=== PATIENT | female | born 1955 | race Caucasian/White ===

== ENCOUNTER 2018-01-23 13:00 | Inpatient (IN) | payer BC, SELFPAY ==
[2018-01-23] VITALS (7 sets, daily range): BP systolic 110–137; BP diastolic 74–86; PULSE 62–90; RESP 16–18; TEMP 36.8–37.2; O2SAT 98–100; BMI 33.4
--- NOTE | 2018-01-23 14:01 | MRI_ITS ---
STUDY: MRI BRAIN WITHOUT CONTRAST REASON FOR EXAM: Female, 62 years old. Left facial droop and arm weakness TECHNIQUE: Standardized multiplanar fat and water weighted pulse sequences were obtained. COMPARISON: None. FINDINGS: Mild atrophy and periventricular white matter ischemic changes.. There is an old infarct in the right parietal lobe and left posterior frontal lobe. There is also gliosis within the right frontal parietal region which demonstrates restricted diffusion consistent with acute ischemic changes Normal bilateral basal ganglia. Normal thalami. There is no extra-axial fluid accumulation. Normal flow voids within the major intracranial circulation suggesting patency by spin echo criteria. Normal sella turcica, pituitary gland, infundibular stalk, optic chiasm and hypothalamus. Normal tectal plate and pineal gland. Normal midbrain, raisa and medulla. Normal cerebellum. Normal basal cisterns. Normal bilateral temporal bones. Normal bilateral internal auditory canals. No demonstrated orbital abnormality, within the constraints of a routine brain study. Normal visualized paranasal sinuses. Normal calvarium and skull base. Normal visualized soft tissue structures. Normal visualized upper cervical spine. MRI/Brain without Contrast IMPRESSION: Acute ischemic infarct in the right frontal parietal region Mild atrophy and periventricular white matter ischemic changes. Chronic infarct in the right parietal lobe and left posterior frontal lobe.. N.B. : The above information has been verbally conveyed by Herbie Galvan MD to DO bernard, on 01/23/2018 21:31:30 (ET). Electronically Signed: Herbie Galvan MD at 21:25 EST , Service support ,
--- NOTE | 2018-01-23 14:01 | MRI_ITS ---
STUDY: MRA OF THE HEAD WITHOUT CONTRAST REASON FOR EXAM: Female, 62 years old. CVA TECHNIQUE: 3-D [id number]-pu-bkfeku (TOF) imaging was performed with MIPs. The study was performed unenhanced. COMPARISON: None. FINDINGS: Normal bilateral petrous carotid arteries. Normal right cavernous carotid artery with a normal supraclinoid bifurcation. Normal left cavernous carotid artery with a normal supraclinoid bifurcation. Normal right A1 segments of the anterior cerebral artery. Normal left A1 segments of the anterior cerebral artery. Normal intact anterior communicating artery (ACOM). Normal bilateral A2 segments of the anterior cerebral arteries. Normal right M1 and M2 segments of the middle cerebral arteries, with a normal M1 bifurcation. Normal left M1 and M2 segments of the middle cerebral arteries, with a normal M1 bifurcation. Posterior communicating arteries not visualized consistent with normal variant. Normal bilateral vertebral arteries. Normal basilar artery with a normal basilar bifurcation. The visualized bilateral superior cerebellar (SCA) arteries are normal. Normal bilateral P1, P2 and visualized P3 segments of the posterior cerebral arteries. There is no demonstrated aneurysm of the [place]al[place] of [place]. There is no major vessel occlusion or hemodynamically significant stenosis. There is no demonstrated abnormality of the visualized brain. MRI/MRA Head ONLY without Contrast IMPRESSION: Normal MRA of the head Electronically Signed: Herbie Galvan MD at 21:26 EST , Service support ,
--- NOTE | 2018-01-23 14:01 | MRI_ITS ---
STUDY: MRA NECK WITH AND WITHOUT CONTRAST REASON FOR EXAM: Female, 62 years old. CVA TECHNIQUE: 3-D [id number]-gj-[id number] (TOF) imaging was performed in an 1.5 T MRI scanner. 8 ml of Gadavist was administered for the contrast enhanced images. COMPARISON: None. FINDINGS: RIGHT CAROTID ARTERIES: Normal right common carotid artery (CCA). Normal right common carotid bulb. Normal origin of the right internal carotid (ICA) artery without a hemodynamically significant stenosis. Normal visualized cervical portion of the right internal carotid artery. Normal origin of the right external carotid artery (ECA). LEFT CAROTID ARTERIES: Normal left common carotid artery (CCA). Normal left common carotid bulb. Normal origin of the left internal carotid (ICA) artery without a hemodynamically significant stenosis. Normal visualized cervical portion of the left internal carotid artery. Normal origin of the left external carotid artery (ECA). VERTEBRAL ARTERIES: Normal antegrade flow within the bilateral vertebral artery without a hemodynamically significant stenosis. MRI/MRA Neck WITH and W/O Contrast IMPRESSION: Normal bilateral cervical carotid and vertebral arteries. Electronically Signed: Herbie Galvan MD at 21:27 EST , Service support ,
--- NOTE | 2018-01-23 14:01 | ECHOD_ITS ---
Reason For Study: TIA/CVA Procedure This was a 2D Doppler, Color Flow transthoracic echocardiogram. Exam performed in department. Left Ventricle Normal size and thickness. The estimated ejection fraction is 65 %. Normal diastology for age. No regional wall motion abnormalities noted. Right Ventricle Normal size and thickness. Normal systolic function. Atria Normal left atrium. Normal right atrium. Normal atrial septum. Bubble contrast study negative for right to left interatrial shunt. Mitral Valve The mitral valve is structurally normal. No prolapse or stenosis seen. Trivial mitral valve insufficiency. Tricuspid Valve Normal tricuspid valve. Trivial tricuspid valve insufficiency. Right ventricular systolic pressure estimated to be 27 mmHg. Aortic Valve Trisinus/trileaflet aortic valve. Trivial aortic valve insufficiency. Pulmonic Valve Normal pulmonic valve. Great Vessels Normal aortic root. Normal arch. Normal inferior vena cava. Inferior vena cava collapse with sniff. Pericardium/Pleural No pericardial effusion. Medication Performed a rapid injection of agitated mix of 9 cc saline and 1cc air to assess for atrial septal defect. MMode/2D Measurements & Calculations LVIDd: 4.0 cm IVSd: 1.1 cm Ao root diam: 2.9 cm LVIDs: 2.8 cm LVPWd: 1.00 cm RVDd: 3.4 cm FS: 30.2 % LAV(MOD-bp): 58.5 ml LVAd ap4: 32.0 cm2 SV(MOD-sp4): 56.0 ml LAV(MOD-bp) Indexed: 31.4 ml/m2 EDV(MOD-sp4): 96.9 ml LAV(MOD-sp2): 53.5 ml EDV(sp4-el): 100.1 ml LAV(MOD-sp4): 63.3 ml LVAs ap4: 18.1 cm2 ESV(MOD-sp4): 40.9 ml ESV(sp4-el): 39.9 ml EF(MOD-sp4): 57.8 % EF(sp4-el): 60.2 % SV(sp4-el): 60.2 ml LA A4 area: 20.7 cm2 LA dimension(2D): 2.9 cm RA A4 area: 17.0 cm2 Time Measurements MV dec time: 0.25 sec Doppler Measurements & Calculations MV E max damian: 143.0 cm/sec Lat Peak E' Damian: 11.1 cm/sec Med Peak E' Damian: 7.7 cm/sec MV A max damian: 113.9 cm/sec E/E' lat: 12.9 E/E' med: 18.5 MV E/A: 1.3 MV V2 max: 139.9 cm/sec Ao V2 max: 171.0 cm/sec LV V1 max: 92.2 cm/sec MV max P.8 mmHg Ao max P.7 mmHg LV V1 max P.4 mmHg MV V2 mean: 87.1 cm/sec MV mean P.4 mmHg MV V2 VTI: 47.6 cm PA V2 max: 77.8 cm/sec TR max damian: 235.8 cm/sec MV P1/2t-pr_phl: 107.8 msec TR max P.2 mmHg Interpretation Summary The estimated ejection fraction is 65 %. Normal diastology for age. Bubble contrast study negative for right to left interatrial shunt. Trivial mitral valve insufficiency. Trivial tricuspid valve insufficiency. Right ventricular systolic pressure estimated to be 27 mmHg. Trivial aortic valve insufficiency. There is no comparison study available. Ordering Physician: Scotty Zelaya Referring Physician: PARIS SNYDER Performed By: Conchis Quinones, ANA, RVT
--- NOTE | 2018-01-23 14:30 | PCM.CONS.GEN ---
Problem List (1) Stroke Status: Acute Qualifiers: Precerebral and cerebral artery: middle cerebral artery Laterality of affected vessel: right Reason for Consult Date of Consultation: 01/23/18 Reason for Consultation: Stroke History of Present Illness: The patient is a 62 year old CF with PMH HTN, HLD, DM, H/O stroke per CT images, H/O Breast cancer with right lumpectomy, s/p chemotherapy and radiation in 2014 admitted with stroke. Per patient she developed left facial droop, with left arm numbness and hand weakness sometime after she woke up this morning (01/23/18), also complaints of mild occipital CHAMORRO, denies any dizziness, visual disturbances or speech disturbances, denies any neck pain or low back pain with radicular symptoms, she was initially taken to hospital at [facility] and then transferred to [facility], had NIHSS of about 2 on admission, was not a tpa candidate. Per patient she lives with her husbands, denies any falls, does drive, does not use cane or walker to ambulate, does not need any assistance for her ADLs, she has not been on ASA at baseline. The CT head done at [facility] ED reported to show old large left temporoparietal and right parietal infarct but per patient she was never of the strokes and denies any stroke symptoms in the past. [] Past Medical History Allergies erythromycin base [Erythromycin Base] Allergy (Verified 01/29/14 14:47) Rash Home Medications: Ambulatory Orders Medication Instructions Recorded Ascorbic Acid [Vitamin C] 500 mg PO DAILY@0800 01/29/14 Lisinopril [Zestril] 5 mg PO DAILY 01/29/14 Metformin HCl [Glucophage] 500 mg PO BIDCM 01/29/14 Multivitamins,Therapeutic 1 tablet PO DAILY 01/29/14 [Multivitamin] [place]-3 Fatty Acids [Fish Oil] 500 mg PO QODAY 01/29/14 Pravastatin [Pravachol] 20 mg PO DAILY 01/29/14 Tamoxifen [Nolvadex] 20 mg PO DAILY 01/23/18 Lives: Spouse/ Significant Other Smoking Status: Never smoker Tobacco Use: Non-smoker Alcohol: None Drugs: None Review of Systems Constitutional: Reports: - - complete ROS negative except as documented in HPI Patient Problems: Active and Suspected Problems Stroke (Acute) - Physical Exam General: Alert HEENT: Normocephalic Neck: Supple Lungs: Normal air movement Cardiovascular: Normal S1, Normal S2 Abdomen: Bowel Sounds Present Extremities: No cyanosis Neurological: - - consious, alert, AoAx3, CN -left 7th UMN facial palsy, no facial sensory loss, power 5/5 right UE/LE, 4/5 Left UE with distal hand weakness, 5/5 Left LE, left pronator drift, plantars right flexor, left equivocal, denies any sensory loss at present, no cerebellar signs, Reflexes + B/L B/S/T/K/A, gait deferred, no aphasia/dysarthria, NIHSS 2 at present, mRS 0 at baseline Psych/Mental Status: Normal Affect Vital Signs Temp Pulse Resp BP Pulse Ox 98.9 F 62 18 110/80 98 01/23/18 13:20 01/23/18 13:20 01/23/18 13:20 01/23/18 13:20 01/23/18 13:20 Oxygen Delivery Method Room Air Weight: 85.638 kg Body Mass Index (BMI) 33.4 Assessment/Plan All Active Problems Stroke (Acute) The patient is a 62 year old CF with PMH HTN, HLD, DM, H/O stroke per CT images, H/O Breast cancer with right lumpectomy, s/p chemotherapy and radiation in 2014 admitted with stroke. Per patient she developed left facial droop, with left arm numbness and hand weakness sometime after she woke up this morning (01/23/18), also complaints of mild occipital CHAMORRO, denies any dizziness, visual disturbances or speech disturbances, denies any neck pain or low back pain with radicular symptoms, she was initially taken to hospital at [facility] and then transferred to [facility], had NIHSS of about 2 on admission, was not a tpa candidate. Per patient she lives with her husbands, denies any falls, does drive, does not use cane or walker to ambulate, does not need any assistance for her ADLs, she has not been on ASA at baseline. The CT head done at [facility] ED reported to show old large left temporoparietal and right parietal infarct but per patient she was never of the strokes and denies any stroke symptoms in the past. Impression Likely Right MCA stroke vs right pontine stroke Plan -ASA 81 mg PO once daily and Plavix 75 mg PO Once daily. Dual AP for 3 weeks, then switch to single AP. Bleeding risks discussed in detail -Lipitor 80 mg PO q hs -MRI brain and MRA head/neck-p -TTE-p -LDL/[id number] -Frequent neuro checks -Permissive HTN for initially 24 hrs atleast -30 day event recorder. -Stroke risk factors discussed and stroke education provided -PT/OT -GI/DVT prophylaxis -Fall precautions -Further medical management per hospitalist team -Follow up with Neurology as outpatient in 2-3 weeks after discharge. -Please call with questions if any -Thank you for allowing us to participate in patient's care and management Code Visit Inpatient E&M: [id number] Init Hosp L3
--- NOTE | 2018-01-23 14:35 | CON.PCM_ITS ---
Problem List (1) Stroke Status: Acute Qualifiers: Precerebral and cerebral artery: middle cerebral artery Laterality of affected vessel: right Reason for Consult Date of Consultation: 01/23/18 Reason for Consultation: Stroke History of Present Illness: The patient is a 62 year old CF with PMH HTN, HLD, DM, H/O stroke per CT images, H/O Breast cancer with right lumpectomy, s/p chemotherapy and radiation in 2014 admitted with stroke. Per patient she developed left facial droop, with left arm numbness and hand weakness sometime after she woke up this morning (01/23/18), also complaints of mild occipital CHAMORRO, denies any dizziness, visual disturbances or speech disturbances, denies any neck pain or low back pain with radicular symptoms, she was initially taken to hospital at [place] and then transferred to [facility], had NIHSS of about 2 on admission, was not a tpa candidate. Per patient she lives with her husbands, denies any falls, does drive, does not use cane or walker to ambulate, does not need any assistance for her ADLs, she has not been on ASA at baseline. The CT head done at [place] ED reported to show old large left temporoparietal and right parietal infarct but per patient she was never of the strokes and denies any stroke symptoms in the past. [] Past Medical History Allergies erythromycin base [Erythromycin Base] Allergy (Verified 01/29/14 14:47) Rash Home Medications: Ambulatory Orders Medication Instructions Recorded Ascorbic Acid [Vitamin C] 500 mg PO DAILY@0800 01/29/14 Lisinopril [Zestril] 5 mg PO DAILY 01/29/14 Metformin HCl [Glucophage] 500 mg PO BIDCM 01/29/14 Multivitamins,Therapeutic 1 tablet PO DAILY 01/29/14 [Multivitamin] [place]-3 Fatty Acids [Fish Oil] 500 mg PO QODAY 01/29/14 Pravastatin [Pravachol] 20 mg PO DAILY 01/29/14 Tamoxifen [Nolvadex] 20 mg PO DAILY 01/23/18 Lives: Spouse/ Significant Other Smoking Status: Never smoker Tobacco Use: Non-smoker Alcohol: None Drugs: None Review of Systems Constitutional: Reports: - - complete ROS negative except as documented in HPI Patient Problems: Active and Suspected Problems Stroke (Acute) - Physical Exam General: Alert HEENT: Normocephalic Neck: Supple Lungs: Normal air movement Cardiovascular: Normal S1, Normal S2 Abdomen: Bowel Sounds Present Extremities: No cyanosis Neurological: - - consious, alert, AoAx3, CN -left 7th UMN facial palsy, no facial sensory loss, power 5/5 right UE/LE, 4/5 Left UE with distal hand weakness, 5/5 Left LE, left pronator drift, plantars right flexor, left equivocal, denies any sensory loss at present, no cerebellar signs, Reflexes + B/L B/S/T/K/A, gait deferred, no aphasia/dysarthria, NIHSS 2 at present, mRS 0 at baseline Psych/Mental Status: Normal Affect Vital Signs Temp Pulse Resp BP Pulse Ox 98.9 F 62 18 110/80 98 01/23/18 13:20 01/23/18 13:20 01/23/18 13:20 01/23/18 13:20 01/23/18 13:20 Oxygen Delivery Method Room Air Weight: 85.638 kg Body Mass Index (BMI) 33.4 Assessment/Plan All Active Problems Stroke (Acute) The patient is a 62 year old CF with PMH HTN, HLD, DM, H/O stroke per CT images, H/O Breast cancer with right lumpectomy, s/p chemotherapy and radiation in 2014 admitted with stroke. Per patient she developed left facial droop, with left arm numbness and hand weakness sometime after she woke up this morning (01/23/18), also complaints of mild occipital CHAMORRO, denies any dizziness, visual disturbances or speech disturbances, denies any neck pain or low back pain with radicular symptoms, she was initially taken to hospital at [place] and then transferred to [facility], had NIHSS of about 2 on admission, was not a tpa candidate. Per patient she lives with her husbands, denies any falls, does drive, does not use cane or walker to ambulate, does not need any assistance for her ADLs, she has not been on ASA at baseline. The CT head done at [place] ED reported to show old large left temporoparietal and right parietal infarct but per patient she was never of the strokes and denies any stroke symptoms in the past. Impression Likely Right MCA stroke vs right pontine stroke Plan -ASA 81 mg PO once daily and Plavix 75 mg PO Once daily. Dual AP for 3 weeks, then switch to single AP. Bleeding risks discussed in detail -Lipitor 80 mg PO q hs -MRI brain and MRA head/neck-p -TTE-p -LDL/[id number] -Frequent neuro checks -Permissive HTN for initially 24 hrs atleast -30 day event recorder. -Stroke risk factors discussed and stroke education provided -PT/OT -GI/DVT prophylaxis -Fall precautions -Further medical management per hospitalist team -Follow up with Neurology as outpatient in 2-3 weeks after discharge. -Please call with questions if any -Thank you for allowing us to participate in patient's care and management Code Visit Inpatient E&M: [id number] Init Hosp L3
[2018-01-23 16:22] LABS: Hemoglobin A1c 8.6 % (4.2-6.3)
[2018-01-23] MEDS: Aspirin 81 MG TAB.CHEW PO (17:18)
--- NOTE | 2018-01-23 20:28 | PCM.HP.STD ---
Problem List (1) Acute ischemic stroke Status: Acute History of Present Illness Date of Admission: 01/23/18 Chief Complaint: Acute stroke, left upper extremity weakness and left facial drooping The patient is a 62 year old F who was directly admitted to PCU after being seen at an emergency room in [facility] with complaints of left facial drooping, left arm paresthesias, and left arm weakness which started a little after 6 AM in the morning this morning. Patient had already awakened when the symptoms started. Patient denies any visual disturbances, headache, speech disturbances, or difficulty walking. Workup was performed including a CAT scan of the brain which showed the presence of 2 old strokes, patient's lab work showed an elevated blood sugar. Patient was directly admitted to PCU for further workup of her symptoms-it was felt that she had an acute ischemic stroke. Patient's NIH stroke score at the time of admission to PCU today was 2. Patient stated that she had no previous diagnosis of a confirmed stroke although she had an episode many years ago that presented as problems with her coordination and speech. Patient was not on any aspirin at home, she is being treated by her PCP for type 2 diabetes and hyperlipidemia. She has a past history of left breast cancer that was treated with a lumpectomy and radiation in 2016. Patient states her blood sugar has not been under good control-she states that she thinks her last hemoglobin A1c was 7.9. Past Medical History Allergies erythromycin base [Erythromycin Base] Allergy (Verified 01/29/14 14:47) Rash Home Medications: Ambulatory Orders Medication Instructions Recorded Ascorbic Acid [Vitamin C] 500 mg PO DAILY@0800 01/29/14 Lisinopril [Zestril] 5 mg PO DAILY 01/29/14 Metformin HCl [Glucophage] 500 mg PO BIDCM 01/29/14 Multivitamins,Therapeutic 1 tablet PO DAILY 01/29/14 [Multivitamin] [place]-3 Fatty Acids [Fish Oil] 500 mg PO QODAY 01/29/14 Pravastatin [Pravachol] 20 mg PO DAILY 01/29/14 Tamoxifen [Nolvadex] 20 mg PO DAILY 01/23/18 Surgical History: hysterectomy, - - Back to [place] left breast, left foot surgery Psychiatric History: No pertinent psych hx 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 Denies: Difficulty Hearing, Difficulty Swallowing, Dysphasia, Ear Pain, Eye Pain, Head Aches, Hearing Changes, Nasal bleeding, Nasal Congestion, Post Nasal Drip Cardiovascular: Denies: Chest Pain, Claudication, Chest Pressure, Chest Tightness, Edema, Heaviness, Palpitations Respiratory: Denies: Cough, Hemoptysis, Pleuritic Pain, Shortness of Breath, Shortness of breath at rest, Shortness of breath upon exertion, Sputum production Gastrointestinal: Denies: Abdominal Pain, Constipation, Diarrhea, Hematemesis, Hematochezia, Nausea, Melena, Vomiting Genitourinary: Denies: Dysuria, Frequency, Hematuria, Hesitancy, Urgency Musculoskeletal: Denies: Back Pain, Foot Pain, Hand Pain, Joint Pain, Joint stiffness, Joint swelling, Joint Tenderness, Leg Pain Skin: Denies: Dryness, Jaundice, Pruritis, Rash, Wounds Neurological: Reports: Focal weakness - Left arm weakness starting just after 6 AM this morning, Tingling - Tingling of the left arm starting just after 6 AM this morning. Denies: Blurred vision, Double vision, Change in Speech, Slurred speech, Difficulty swallowing, Numbness Psychiatric: Denies: Anxiety, Depression, Homicidal Ideations, Suicidal Ideations Endocrine: Denies: Change in Body Habitus, Heat/ Cold Intolerance, Polydipsia, Polyuria Hematologic/ Lymphatic: Denies: Adenopathy, Anemia, Easy Bruising, Easy Bleeding, Petechiae, Purpura VTE Information - Inpt Only VTE Present on Admission: No VTE Mechan Device Prophylaxis: None VTE Pharm Prophylaxis ordered?: Yes Patient Problems: Active and Suspected Problems Stroke (Acute) Acute ischemic stroke (Acute) - Physical Exam General: Alert, Oriented x3, Cooperative, No apparent distress, Well developed, Well nourished HEENT: Atraumatic, PERRLA, EOMI, Normocephalic, - - Left-sided mouth drooping is noted Oral: Moist Mucosa Neck: Supple, No JVD, Negative Carotid Bruits, No Nuchal Rigidity, Trachea Midline, Thyroid Normal Size and Texture Lungs: Clear to auscultation, Normal air movement, No rhonchi, No wheeze, No rales Cardiovascular: Regular rate, Regular Rhythm, Normal S1, Normal S2, No murmurs, No Ectopic Activity, PMI Normal, No rub noted, No Gallop Abdomen: Bowel Sounds Present, Soft, Non Tender, Non-Distended, No hernias noted Extremities: No edema, Capillary Refill Less than 3 Seconds Skin: No rashes, No breakdown Musculoskeletal: No Tenderness to Palpation of Joints or Extremities Neurological: Cranial nerves II-XII grossly intact, Neuro grossly intact, Sensory exam intact to light touch and pain, - - Focal weakness is noted in the left arm with decreased telephone interviewer strength and flexion and extension in the left arm, drooping of the left side of the mouth is noted Psych/Mental Status: Normal Affect, Appropriate, Alert and oriented to time, place, person, mood and affect Vital Signs Temp Pulse Resp BP Pulse Ox 98.5 F 81 18 125/86 H 100 01/23/18 17:20 01/23/18 18:57 01/23/18 17:20 01/23/18 17:20 01/23/18 17:20 Oxygen Delivery Method Room Air Weight: 85.638 kg Body Mass Index (BMI) 33.4 Intake and Output for Last 24 Hours 01/21/18 01/22/18 01/23/18 23:59 23:59 23:59 Intake Total 240 / 240 Balance 240 / 240 Laboratory Tests Past 24 Hrs 01/23/18 15:25 Hemoglobin A1c 8.6 H Assessment/Plan All Active Problems Stroke (Acute) Acute ischemic stroke (Acute) #1 acute ischemic stroke-right cerebral area involving right middle cerebral artery-patient was placed on aspirin, she was placed on Lipitor, she will have a PT, OT, and speech eval, she was seen by neurology today in consultation, she will have an echocardiogram performed as well as an MRA of the head and neck and an MRI of the brain. #2 type 2 diabetes-under poor control--patient's blood sugars will be monitored and she will get be given insulin per protocol #3 hyperlipidemia-patient was placed on Lipitor 80 mg nightly #4 past history of left breast cancer-patient will remain on her current outpatient medication # 5 cerebrovascular disease with past history of right and left cerebral infarctions-patient may need a 30-day event monitor at the time of discharge, she might require a [place] during this admission Code Visit Inpatient E&M: [id number] Init Hosp L3
--- NOTE | 2018-01-23 20:34 | HP.PCM_ITS ---
Problem List (1) Acute ischemic stroke Status: Acute History of Present Illness Date of Admission: 01/23/18 Chief Complaint: Acute stroke, left upper extremity weakness and left facial drooping The patient is a 62 year old F who was directly admitted to PCU after being seen at an emergency room in [facility] with complaints of left facial drooping, left arm paresthesias, and left arm weakness which started a little after 6 AM in the morning this morning. Patient had already awakened when the symptoms started. Patient denies any visual disturbances, headache, speech disturbances, or difficulty walking. Workup was performed including a CAT scan of the brain which showed the presence of 2 old strokes, patient's lab work showed an elevated blood sugar. Patient was directly admitted to PCU for further workup of her symptoms-it was felt that she had an acute ischemic stroke. Patient's NIH stroke score at the time of admission to PCU today was 2. Patient stated that she had no previous diagnosis of a confirmed stroke although she had an e pisode many years ago that presented as problems with her coordination and speech. Patient was not on any aspirin at home, she is being treated by her PCP for type 2 diabetes and hyperlipidemia. She has a past history of left breast cancer that was treated with a lumpectomy and radiation in 2016. Patient states her blood sugar has not been under good control-she states that she thinks her last hemoglobin A1c was 7.9. Past Medical History Allergies erythromycin base [Erythromycin Base] Allergy (Verified 01/29/14 14:47) Rash Home Medications: Ambulatory Orders Medication Instructions Recorded Ascorbic Acid [Vitamin C] 500 mg PO DAILY@0800 01/29/14 Lisinopril [Zestril] 5 mg PO DAILY 01/29/14 Metformin HCl [Glucophage] 500 mg PO BIDCM 01/29/14 Multivitamins,Therapeutic 1 tablet PO DAILY 01/29/14 [Multivitamin] [place]-3 Fatty Acids [Fish Oil] 500 mg PO QODAY 01/29/14 Pravastatin [Pravachol] 20 mg PO DAILY 01/29/14 Tamoxifen [Nolvadex] 20 mg PO DAILY 01/23/18 Surgical History: hysterectomy, - - Back to wi left breast, left foot surgery Psychiatric History: No pertinent psych hx APPLIED STATISTICIAN History: No pertinent APPLIED STATISTICIAN history Lives: Spouse/ Significant Other Smoking Status: Never smoker Tobacco Use: Non-smoker Alcohol: None Drugs: None - *Family History Maternal History Items: - - Multiple sclerosis Paternal History Items: Cancer - Colon and prostate CA Review of Systems Constitutional: Denies: Anorexia, Chills, Fever, Night Sweats, Malaise, Weakness, Weight Change, Fatigue Eyes: Denies: Blurred vision, Cataracts, Conjunctivae Inflammation, Double vision, Drainage, Eyelid Inflammation HEENT: Reports: - - Left mouth drooping which started at approximately 6 AM this morning. Denies: Difficulty Hearing, Difficulty Swallowing, Dysphasia, Ear Pain, Eye Pain, Head Aches, Hearing Changes, Nasal bleeding, Nasal Congestion, Post Nasal Drip Cardiovascular: Denies: Chest Pain, Claudication, Chest Pressure, Chest Tightness, Edema, Heaviness, Palpitations Respiratory: Denies: Cough, Hemoptysis, Pleuritic Pain, Shortness of Breath, Shortness of breath at rest, Shortness of breath upon exertion, Sputum production Gastrointestinal: Denies: Abdominal Pain, Constipation, Diarrhea, Hematemesis, Hematochezia, Nausea, Melena, Vomiting Genitourinary: Denies: Dysuria, Frequency, Hematuria, Hesitancy, Urgency Musculoskeletal: Denies: Back Pain, Foot Pain, Hand Pain, Joint Pain, Joint stiffness, Joint swelling, Joint Tenderness, Leg Pain Skin: Denies: Dryness, Jaundice, Pruritis, Rash, Wounds Neurological: Reports: Focal weakness - Left arm weakness starting just after 6 AM this morning, Tingling - Tingling of the left arm starting just after 6 AM this morning. Denies: Blurred vision, Double vision, Change in Speech, Slurred speech, Difficulty swallowing, Numbness Psychiatric: Denies: Anxiety, Depression, Homicidal Ideations, Suicidal Ideations Endocrine: Denies: Change in Body Habitus, Heat/ Cold Intolerance, Polydipsia, Polyuria Hematologic/ Lymphatic: Denies: Adenopathy, Anemia, Easy Bruising, Easy Bleeding, Petechiae, Purpura VTE Information - Inpt Only VTE Present on Admission: No VTE Mechan Device Prophylaxis: None VTE Pharm Prophylaxis ordered?: Yes Patient Problems: Active and Suspected Problems Stroke (Acute) Acute ischemic stroke (Acute) - Physical Exam General: Alert, Oriented x3, Cooperative, No apparent distress, Well developed, Well nourished HEENT: Atraumatic, PERRLA, EOMI, Normocephalic, - - Left-sided mouth drooping is noted Oral: Moist Mucosa Neck: Supple, No JVD, Negative Carotid Bruits, No Nuchal Rigidity, Trachea Midline, Thyroid Normal Size and Texture Lungs: Clear to auscultation, Normal air movement, No rhonchi, No wheeze, No rales Cardiovascular: Regular rate, Regular Rhythm, Normal S1, Normal S2, No murmurs, No Ectopic Activity, PMI Normal, No rub noted, No Gallop Abdomen: Bowel Sounds Present, Soft, Non Tender, Non-Distended, No hernias noted Extremities: No edema, Capillary Refill Less than 3 Seconds Skin: No rashes, No breakdown Musculoskeletal: No Tenderness to Palpation of Joints or Extremities Neurological: Cranial nerves II-XII grossly intact, Neuro grossly intact, Sensory exam intact to light touch and pain, - - Focal weakness is noted in the left arm with decreased curer acid drum strength and flexion and extension in the left arm, drooping of the left side of the mouth is noted Psych/Mental Status: Normal Affect, Appropriate, Alert and oriented to time, place, person, mood and affect Vital Signs Temp Pulse Resp BP Pulse Ox 98.5 F 81 18 125/86 H 100 01/23/18 17:20 01/23/18 18:57 01/23/18 17:20 01/23/18 17:20 01/23/18 17:20 Oxygen Delivery Method Room Air Weight: 85.638 kg Body Mass Index (BMI) 33.4 Intake and Output for Last 24 Hours 01/21/18 01/22/18 01/23/18 23:59 23:59 23:59 Intake Total 240 / 240 Balance 240 / 240 Laboratory Tests Past 24 Hrs 01/23/18 15:25 Hemoglobin A1c 8.6 H Assessment/Plan All Active Problems Stroke (Acute) Acute ischemic stroke (Acute) #1 acute ischemic stroke-right cerebral area involving right middle cerebral artery-patient was placed on aspirin, she was placed on Lipitor, she will have a PT, OT, and speech eval, she was seen by neurology today in consultation, she will have an echocardiogram performed as well as an MRA of the head and neck and an MRI of the brain. #2 type 2 diabetes-under poor control--patient's blood sugars will be monitored and she will get be given insulin per protocol #3 hyperlipidemia-patient was placed on Lipitor 80 mg nightly #4 past history of left breast cancer-patient will remain on her current outpatient medication # 5 cerebrovascular disease with past history of right and left cerebral infarctions-patient may need a 30-day event monitor at the time of discharge, she might require a [place] during this admission Code Visit Inpatient E&M: 37347 Init Hosp L3
[2018-01-23] MEDS: Atorvastatin Calcium 80 MG Tablet PO (21:26)
[2018-01-23 23:11] LABS: Bedside Glucose 161 mg/dL (70-110)
[2018-01-24] VITALS (7 sets, daily range): BP systolic 116–138; BP diastolic 67–75; PULSE 62–103; RESP 16–18; TEMP 36.6–37.2; O2SAT 96–99; BMI 33.4
[2018-01-24] MEDS: Enoxaparin 40 MG/0.4 ML Syringe SC (05:33)
[2018-01-24 06:29] LABS: Cholesterol 172 mg/dL (200); High Density Lipoprotein 42 mg/dL; Triglycerides 214 mg/dL; Very Low Density Lipoprotein 43 mg/dL (5-40)
[2018-01-24 06:50] LABS: Bedside Glucose 180 mg/dL (70-110)
[2018-01-24] MEDS: Aspirin 81 MG TAB.CHEW PO (09:20)
[2018-01-24] MEDS: Tamoxifen 10 MG Tablet 20 MG PO (09:21)
[2018-01-24] MEDS: Lisinopril 5 MG Tablet PO (09:21)
[2018-01-24] MEDS: Multivitamins,Therapeutic Tablet 1 TABLET PO (09:21)
[2018-01-24] MEDS: Ascorbic Acid 500 MG Tablet PO (09:21)
[2018-01-24] MEDS: Clopidogrel Bisulfate 75 MG Tablet PO (09:21)
--- NOTE | 2018-01-24 10:26 | PCM.PN.NEU ---
Patient Problems: Active and Suspected Problems Stroke (Acute) Acute ischemic stroke (Acute) Subjective: No issues overnight - Physical Exam General: Alert HEENT: Normocephalic Neck: Supple Lungs: Normal air movement Cardiovascular: Normal S1, Normal S2 Abdomen: Bowel Sounds Present Extremities: No cyanosis Neurological: - - consious, alert, AoAx3, CN -left 7th UMN facial palsy, no facial sensory loss, power 5/5 right UE/LE, 4/5 Left UE with distal hand weakness, 5/5 Left LE, left pronator drift, plantars right flexor, left equivocal, denies any sensory loss at present, no cerebellar signs, Reflexes + B/L B/S/T/K/A, gait deferred, no aphasia/dysarthria, NIHSS 2 at present, mRS 0 at baseline Psych/Mental Status: Normal Affect Vital Signs Temp Pulse Resp BP Pulse Ox 99.0 F 71 18 138/71 H 99 01/24/18 09:20 01/24/18 09:20 01/24/18 09:20 01/24/18 09:20 01/24/18 09:20 Oxygen Delivery Method Room Air Weight: 85.638 kg Body Mass Index (BMI) 33.4 Intake and Output for Last 24 Hours 01/22/18 01/23/18 01/24/18 23:59 23:59 23:59 Intake Total 240 / 240 120 / 120 Balance 240 / 240 120 / 120 Laboratory Tests Past 24 Hrs 01/23/18 01/24/18 15:25 05:45 Hemoglobin A1c 8.6 H Triglycerides 214 H Cholesterol 172 LDL Cholesterol 87 VLDL Cholesterol 43 H HDL Cholesterol 42 POC Glucose 01/24/18 01/23/18 06:47 21:27 POC Glucose 180 H 161 H Medical Necessity - Tobacco Use Smoking Status: Never smoker Tobacco Use: Non-smoker Assessment/Plan All Active Problems Stroke (Acute) Acute ischemic stroke (Acute) The patient is a 62 year old CF with PMH HTN, HLD, DM, H/O stroke per CT images, H/O Breast cancer with right lumpectomy, s/p chemotherapy and radiation in 2014 admitted with stroke. Per patient she developed left facial droop, with left arm numbness and hand weakness sometime after she woke up this morning (01/23/18), also complaints of mild occipital CHAMORRO, denies any dizziness, visual disturbances or speech disturbances, denies any neck pain or low back pain with radicular symptoms, she was initially taken to hospital at [facility] and then transferred to [facility], had NIHSS of about 2 on admission, was not a tpa candidate. Per patient she lives with her husbands, denies any falls, does drive, does not use cane or walker to ambulate, does not need any assistance for her ADLs, she has not been on ASA at baseline. The CT head done at [facility] ED reported to show old large left temporoparietal and right parietal infarct but per patient she was never of the strokes and denies any stroke symptoms in the past. Impression Acute Right MCA stroke Plan -ASA 81 mg PO once daily and Plavix 75 mg PO Once daily. Dual AP for 3 weeks, then switch to single AP. Bleeding risks discussed in detail -Lipitor 80 mg PO q hs -MRI brain-acute right fronto-parietal small stroke, chronic right parietal and left fronto-parietal stroke and MRA head/neck-no hemodynamically significant stenosis or occlusion -TTE-p -LDL-87 Gfq3x-9.6% -Frequent neuro checks -Goal BP < 130/80 mmHg and goal Hba1c < 7% -30 day event recorder. -Stroke risk factors discussed and stroke education provided -PT/OT -GI/DVT prophylaxis -Fall precautions -Further medical management per hospitalist team -Follow up with Neurology as outpatient in 2-3 weeks after discharge. -Please call with questions if any -Thank you for allowing us to participate in patient's care and management
[2018-01-24 11:21] LABS: Bedside Glucose 239 mg/dL (70-110)
[2018-01-24] MEDS: Insulin Lispro 100 UNIT/ML INSULN.PEN SC (12:16)
--- NOTE | 2018-01-24 13:24 | CASEMGMT ---
DO ALFARO assessment: Face to Face with patient for initial transition planning/care coordination assessment. RN DOMINIC introduced self and role at [facility], pt voices understanding and consents to assessment at this time. Pt is sitting up in bed in no distress at this time. Pt is A/Ox4 at this time and answers all questions appropriately at this time. Pt's is at bedside during assessment. Care providers, pharmacy, and demographics verified at this time. PCP: Deb Specialists: Valery, surg; [facility] onc RN, Heaven Colvin Preferred Pharmacy: [facility] Insurance: [employer] Prescription Benefit: [employer] Living Will/HPOA: Pt states does not currently have LW/HPOA but was provided with advanced care planning info by nursing. Pt provided with bilingual social worker pamphlet at this time. LNOK: Ricco Esqueda, Living Arrangements: Pt states lives with in 2 story home with bedroom on 2nd floor and states no concerns at home at this time. Transportation: Pt states normally drives self and states no transportation concerns at this time. DME/HHC: Pt states has no current DME or need for any at this time. Pt states no hx of HHC or SNF in the past. Speech and OT are recommending outpt therapy for pt at discharge and pt provided with script for same at this time. Script also faxed to [facility] per pt request at this time. Pt states no concerns with going home at time of discharge. 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 Pt states does not smoke or drink ETOH. Pt states no further concerns/need at this time. Advised pt to ask for CM if any further questions/concerns/needs arise, voices understanding. Plan: Home w/ OP therapy. S[place]en DO ALFARO
--- NOTE | 2018-01-24 14:03 | DCINST_ITS ---
- Discharge Diagnoses Current Active Problems: Current Active and Chronic Problems Stroke (Acute) Acute ischemic stroke (Acute) You will use the following diet at home:: Calorie/Carbohydrate Controlled (specify 1200, 1400, etc) - 1800 taylor Your food should be the consistency of: Regular Your liquids should be the consistency of: Regular/Thin Discharge Activity: Return to Normal Activity, May Not Drive Weight Bearing Status: Full weight bearing Allergies/Adverse Reactions: Allergies erythromycin base [Erythromycin Base] Allergy (Verified 01/29/14 14:47) Rash Medications to take at Discharge Ascorbic Acid [Vitamin C] 500 mg PO DAILY@0800 01/29/14 Lisinopril [Zestril] 5 mg PO DAILY 01/29/14 Multivitamins,Therapeutic [Multivitamin] 1 tablet PO DAILY 01/29/14 [place]-3 Fatty Acids [Fish Oil] 500 mg PO QODAY 01/29/14 Tamoxifen [Nolvadex] 20 mg PO DAILY 01/23/18 Aspirin [Aspirin, Baby] 81 mg PO DAILY@0800 tab.chew 01/24/18 Atorvastatin Calcium [Lipitor] 80 mg PO QHS #30 tab 01/24/18 Clopidogrel Bisulfate [Plavix] 75 mg PO DAILY #30 tab 01/24/18 Metformin HCl [Glucophage] 1,000 mg PO BID #120 tab 01/24/18 The following prescriptions were given: Atorvastatin Calcium [Lipitor] 80 mg PO QHS #30 tab Clopidogrel Bisulfate [Plavix] 75 mg PO DAILY #30 tab Metformin HCl [Glucophage] 1,000 mg PO BID #120 tab Primary Care Physician: Kelsie Boyd MD [Primary Care Provider] - Please follow up with your Primary Care Physician in: in 2 weeks Test Results: Test results from this visit will be discussed in further detail at your follow- up appointment, if applicable. Please Follow Up With: Sebastian Hernandez MD When: in 3 weeks
--- NOTE | 2018-01-25 10:46 | PCM.DC.SUM ---
Discharge Date and Diagnosis Date of Admission: 01/23/18 Date of Discharge: 01/24/18 - Primary Discharge Diagnosis #1 acute right MCA ischemic stroke #2 type 2 diabetes-uncontrolled #3 hyperlipidemia #4 remote cerebral vascular disease with bilateral cerebral ischemic strokes-etiology unclear Hospital Course and Treatment Operations: None, - - ABIODUN/BSO Procedures: 2-D Echocardiogram Summary of Care Provided: The patient is a 62 year old F was seen in the emergency room in [facility] left arm weakness, left arm numbness, and left-sided facial drooping which started just after 6 AM on 01/23/18. Patient had no speech or visual difficulties. Workup in the emergency room at [facility] included a CT which showed bilateral old cerebral infarctions, patient's blood sugar was elevated in the low 200s, [facility] contacted [facility] for transfer of the patient to the hospital here for further workup. Patient was admitted to PCU for an acute ischemic stroke, she was not a candidate for TPA due to her stroke score of 2. Patient was seen in consultation by neurology, she was placed on a statin, placed on aspirin and Plavix, was seen by PT, OT, and speech therapy, and underwent an MRA of the head and neck and an MRI of the brain. MRI of the brain showed the presence of old cerebral strokes as well as a new stroke in the distribution of the right MCA. Patient had an echocardiogram performed which showed no evidence of a PFO or thrombus. Patient was set up for outpatient PT, OT, and speech therapy, at the time of discharge on 01/24/18, she was sent to the cardiopulmonary department for placement of 30-day monitor. Patient's blood sugars were monitored during her hospital stay. On 01/24/18, patient was seen and examined:General: Alert, Oriented x3, Cooperative, No apparent distress, Well developed, Well nourished HEENT: Atraumatic, PERRLA, EOMI, Normocephalic, - - Left-sided mouth drooping is noted Oral: Moist Mucosa Neck: Supple, No JVD, Negative Carotid Bruits, No Nuchal Rigidity, Trachea Midline, Thyroid Normal Size and Texture Lungs: Clear to auscultation, Normal air movement, No rhonchi, No wheeze, No rales Cardiovascular: Regular rate, Regular Rhythm, Normal S1, Normal S2, No murmurs, No Ectopic Activity, PMI Normal, No rub noted, No Gallop Abdomen: Bowel Sounds Present, Soft, Non Tender, Non-Distended, No hernias noted Extremities: No edema, Capillary Refill Less than 3 Seconds Skin: No rashes, No breakdown Musculoskeletal: No Tenderness to Palpation of Joints or Extremities Neurological: Cranial nerves II-XII grossly intact, Neuro grossly intact, Sensory exam intact to light touch and pain, - - Focal weakness is noted in the left arm with 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 - Physical Exam Vital Signs Temp Pulse Resp BP Pulse Ox 98.9 F 103 H 18 133/75 H 98 01/24/18 13:20 01/24/18 13:20 01/24/18 13:20 01/24/18 13:20 01/24/18 13:20 Oxygen Delivery Method Room Air Weight: 85.638 kg Body Mass Index (BMI) 33.4 Intake and Output for Last 24 Hours 01/23/18 01/24/18 01/25/18 23:59 23:59 23:59 Intake Total 240 / 240 480 / 480 Balance 240 / 240 480 / 480 POC Glucose 01/24/18 11:18 POC Glucose 239 H Discharge Activity: Return to Normal Activity, May Not Drive Weight Bearing Status: Full weight bearing Home Medications: Medications to take at Discharge Ascorbic Acid [Vitamin C] 500 mg PO DAILY@0800 01/29/14 Lisinopril [Zestril] 5 mg PO DAILY 01/29/14 Multivitamins,Therapeutic [Multivitamin] 1 tablet PO DAILY 01/29/14 [place]-3 Fatty Acids [Fish Oil] 500 mg PO QODAY 01/29/14 Tamoxifen [Nolvadex] 20 mg PO DAILY 01/23/18 Aspirin [Aspirin, Baby] 81 mg PO DAILY@0800 tab.chew 01/24/18 Atorvastatin Calcium [Lipitor] 80 mg PO QHS #30 tab 01/24/18 Clopidogrel Bisulfate [Plavix] 75 mg PO DAILY #30 tab 01/24/18 Metformin HCl [Glucophage] 1,000 mg PO BID #120 tab 01/24/18 Following Prescrptions Were Given to Patient: Atorvastatin Calcium [Lipitor] 80 mg PO QHS #30 tab Clopidogrel Bisulfate [Plavix] 75 mg PO DAILY #30 tab Metformin HCl [Glucophage] 1,000 mg PO BID #120 tab Primary Care Physician: Kelsie Boyd MD [Primary Care Provider] - Please follow up with your Primary Care Physician in: in 2 weeks Please Follow Up With: Sebastian Hernandez MD When: in 3 weeks Disposition: Home Minutes spent on discharge:: 32 Patient Condition:: Stable Medical Necessity - Tobacco Use Smoking Status: Never smoker Tobacco Use: Non-smoker Meaningful Use Info Meaningful Use Diagnoses (Choose all that apply): Ischemic CVA - CVA Therapy Assessed for PT,OT and/or ST?: Yes - Ischemic Stroke Antithrombotic order at d/c?: Yes Dx of Atrial fib/flutter?: No Anticoagulant at discharge?: No Reason anticoagulant not ordered: Treatment not Indicated Statins at discharge?: Yes Primary Dx Acute Ischemic CVA?: Yes IV tPA ordered during stay?: No Reason IV t-PA not ordered: Treatment not Indicated Code Visit Inpatient E&M: 40842 Disch Hosp
--- NOTE | 2018-01-25 10:51 | DS.PCM_ITS ---
Discharge Date and Diagnosis Date of Admission: 01/23/18 Date of Discharge: 01/24/18 - Primary Discharge Diagnosis #1 acute right MCA ischemic stroke #2 type 2 diabetes-uncontrolled #3 hyperlipidemia #4 remote cerebral vascular disease with bilateral cerebral ischemic strokes- etiology unclear Hospital Course and Treatment Operations: None, - - ABIODUN/BSO Procedures: 2-D Echocardiogram Summary of Care Provided: The patient is a 62 year old F was seen in the emergency room in [facility] left arm weakness, left arm numbness, and left-sided facial drooping which started just after 6 AM on 01/23/18. Patient had no speech or visual difficulties. Workup in the emergency room at [facility] included a CT which showed bilateral old cerebral infarctions, patient's blood sugar was e levated in the low 200s, [facility] contacted [facility] for transfer of the patient to the hospital here for further workup. Patient was admitted to PCU for an acute ischemic stroke, she was not a candidate for TPA due to her stroke score of 2. Patient was seen in consultation by neurology, she was placed on a statin, placed on aspirin and Plavix, was seen by PT, OT, and speech therapy, and underwent an MRA of the head and neck and an MRI of the brain. MRI of the brain showed the presence of old cerebral strokes as well as a new stroke in the distribution of the right MCA. Patient had an echocardiogram performed which showed no evidence of a PFO or thrombus. Patient was set up for outpatient PT, OT, and speech therapy, at the time of discharge on 01/24/18, she was sent to the cardiopulmonary department for placement of 30- day monitor. Patient's blood sugars were monitored during her hospital stay. On 01/24/18, patient was seen and examined:General: Alert, Oriented x3, Cooperative, No apparent distress, Well developed, Well nourished HEENT: Atraumatic, PERRLA, EOMI, Normocephalic, - - Left-sided mouth drooping is noted Oral: Moist Mucosa Neck: Supple, No JVD, Negative Carotid Bruits, No Nuchal Rigidity, Trachea Midline, Thyroid Normal Size and Texture Lungs: Clear to auscultation, Normal air movement, No rhonchi, No wheeze, No rales Cardiovascular: Regular rate, Regular Rhythm, Normal S1, Normal S2, No murmurs, No Ectopic Activity, PMI Normal, No rub noted, No Gallop Abdomen: Bowel Sounds Present, Soft, Non Tender, Non-Distended, No hernias noted Extremities: No edema, Capillary Refill Less than 3 Seconds Skin: No rashes, No breakdown Musculoskeletal: No Tenderness to Palpation of Joints or Extremities Neurological: Cranial nerves II-XII grossly intact, Neuro grossly intact, Sensory exam intact to light touch and pain, - - Focal weakness is noted in the left arm with decreased tire recapper strength and flexion and extension in the left arm, drooping of the left side of the mouth is noted Psych/Mental Status: Normal Affect, Appropriate, Alert and oriented to time, place, person, mood and affect Vital Signs as outlined on 01/24/18 On 01/24/18, patient was seen and examined felt in stable condition for discharge home. - Physical Exam Vital Signs Temp Pulse Resp BP Pulse Ox 98.9 F 103 H 18 133/75 H 98 01/24/18 13:20 01/24/18 13:20 01/24/18 13:20 01/24/18 13:20 01/24/18 13:20 Oxygen Delivery Method Room Air Weight: 85.638 kg Body Mass Index (BMI) 33.4 Intake and Output for Last 24 Hours 01/23/18 01/24/18 01/25/18 23:59 23:59 23:59 Intake Total 240 / 240 480 / 480 Balance 240 / 240 480 / 480 POC Glucose 01/24/18 11:18 POC Glucose 239 H Discharge Activity: Return to Normal Activity, May Not Drive Weight Bearing Status: Full weight bearing Home Medications: Medications to take at Discharge Ascorbic Acid [Vitamin C] 500 mg PO DAILY@0800 01/29/14 Lisinopril [Zestril] 5 mg PO DAILY 01/29/14 Multivitamins,Therapeutic [Multivitamin] 1 tablet PO DAILY 01/29/14 Bahama-3 Fatty Acids [Fish Oil] 500 mg PO QODAY 01/29/14 Tamoxifen [Nolvadex] 20 mg PO DAILY 01/23/18 Aspirin [Aspirin, Baby] 81 mg PO DAILY@0800 tab.chew 01/24/18 Atorvastatin Calcium [Lipitor] 80 mg PO QHS #30 tab 01/24/18 Clopidogrel Bisulfate [Plavix] 75 mg PO DAILY #30 tab 01/24/18 Metformin HCl [Glucophage] 1,000 mg PO BID #120 tab 01/24/18 Following Prescrptions Were Given to Patient: Atorvastatin Calcium [Lipitor] 80 mg PO QHS #30 tab Clopidogrel Bisulfate [Plavix] 75 mg PO DAILY #30 tab Metformin HCl [Glucophage] 1,000 mg PO BID #120 tab Primary Care Physician: Kelsie Boyd MD [Primary Care Provider] - Please follow up with your Primary Care Physician in: in 2 weeks Please Follow Up With: Sebastian Hernandez MD When: in 3 weeks Disposition: Home Minutes spent on discharge:: 32 Patient Condition:: Stable Medical Necessity - Tobacco Use Smoking Status: Never smoker Tobacco Use: Non-smoker Meaningful Use Info Meaningful Use Diagnoses (Choose all that apply): Ischemic CVA - CVA Therapy Assessed for PT,OT and/or ST?: Yes - Ischemic Stroke Antithrombotic order at d/c?: Yes Dx of Atrial fib/flutter?: No Anticoagulant at discharge?: No Reason anticoagulant not ordered: Treatment not Indicated Statins at discharge?: Yes Primary Dx Acute Ischemic CVA?: Yes IV tPA ordered during stay?: No Reason IV t-PA not ordered: Treatment not Indicated Code Visit Inpatient E&M: 99477 Disch Hosp
== END 2018-01-24 14:13 | disposition home or self-care (01) | DRG 66 ==
PROVIDERS: Psychiatry & Neurology Neurology; Admitting Provider Internal Medicine; Family Provider Internal Medicine; PCP Internal Medicine; Referring Provider Internal Medicine; Visit Provider Internal Medicine
DX: I63.511 Cerebral infarction due to unspecified occlusion or stenosis of right middle cerebral artery (principal); E11.65 Type 2 diabetes mellitus with hyperglycemia; E78.5 Hyperlipidemia, unspecified; R29.810 Facial weakness; G83.24 Monoplegia of upper limb affecting left nondominant side; R29.702 NIHSS score 2; I10 Essential (primary) hypertension; Z85.3 Personal history of malignant neoplasm of breast; Z92.21 Personal history of antineoplastic chemotherapy; Z86.73 Personal history of transient ischemic attack (TIA), and cerebral infarction without residual deficits; Z79.84 Long term (current) use of oral hypoglycemic drugs; Z79.899 Other long term (current) drug therapy; Z92.3 Personal history of irradiation
CPT/HCPCS: 36415; 70544; 70549; 70551; 80061; 82962; 83036; 92523; 93306; 97162; 97165; 97802; A9585; A4216

== ENCOUNTER → 2018-01-24 14:16 | Outpatient (REF) | payer BC, SELFPAY ==
[2018-01-24 10:01] VITALS: BMI 33.4
== END ==
LOC: CVS 14:16
PROVIDERS: Family Provider Internal Medicine; PCP Internal Medicine; Referring Provider Internal Medicine; Visit Provider Internal Medicine
DX: I63.9 Cerebral infarction, unspecified (principal)
CPT/HCPCS: 93270

== ENCOUNTER → 2018-08-24 07:59 | Outpatient (CLI) | payer BC, SELFPAY ==
[2018-01-24 10:01] VITALS: BMI 33.4
--- NOTE | 2018-08-24 | IMM_PTH ---
PATIENT: MARCELLE ALEMAN LOC: [facility] U#:[id number] AGE/SX: 69/F ROOM: RE08/24/[address]: Dr. Vick Rasmussen MD : 1955 BED: DIS: SPEC #: [id number] RECD: 08/27/18 14:40 STATUS: [facility] REQ #: [id number] LUL: 08/24/18 00:[address]: Vick Rasmussen DEPT: IMMUNOHISTOCHEMISTRY RECD BY: Amanda Gomez ENTERED: 08/27/18 14:42 SP TYPE: IMMUNO OTHR DR: Dr. Kelsie Boyd MD Tissues: Right breast, NOS Procedures: SMA (add) MYOSIN (add) CALPONIN-1 (add) CK5-6 (add) CK8 (add) E-CAD (add) HER2 VICKY (add) ID (add) [id number] (add) P40 (add) ER (initial) PHYSICIAN & INSTITUTION [place] [id number] SPECIMEN INFORMATION: Tissue Source: Right breast Clinical Info: Right upper lateral breast microcalcifications Specimen Number: [id number] CPT code: 97200, 51903 x7, 33841 x3 METHODOLOGY: Deparaffinized sections of prefer/formalin-fixed tissue or PAP/DQ stained slides are incubated with monoclonal/polyclonal antibodies/oligonucleotide probes. Localization is made via biotin free immunoperoxidase method. Appropriate controls are performed and reacted as expected. Results on target cell population are indicated in the following table: RESULTS: ANTIBODY / CLONE RESULT E-Cad (ECH-6) positive CK8 ([id number]) positive P40 (BC28) positive * Calponin-1 (KS120G) positive * 34BE12 (34BE12) positive CK5-6 (D5 & 1684) positive * Actin (1A4) positive * Myosin (simms1) positive * *?Negative in the area of microinvasive carcinoma. MORPHOMETRIC ANALYSIS ER (clone [id number]) 37%, weak intensity ID (clone 16/1E2) 0% Her-2Neu (clone CB11) 3+ (positive) The prognostic test for HER2 is performed on formalin-fixed paraffin embedded tissue. A 3+ (positive) staining pattern is defined as intense, homogeneous, complete, circumferential membranous staining in >10% of contiguous tumor cells. A similar weak (2+) staining pattern is interpreted as equivocal. ANDREW follow-up testing is recommended for all equivocal cases. Positivity/negativity for ER/ID is reported if > or < 1% of the tumor cells are immuno- reactive, respectively. The ASCO/CAP criteria is used for scoring. Reference: Journal of Clinical Oncology, 2013; 31:3649-8156 & 2010; 16:8260-4017. Duration of fixation: 59 Hrs; Sample Adequate: Yes. These assays have not been validated on decalcified tissues. Results should be interpreted with caution given the likelihood of false negativity on decalcified specimens. These tests were developed and their performance characteristics determined by [facility]. They may not have been cleared or approved by the U.S. Food and Drug Administration. The FDA has determined that such clearance or approval is not necessary. 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 See comment. SJ:clifford 08/29/18 Comment: ER/ID/Her-2 staining is similar both in the area of ductal carcinoma in situ and microinvasive carcinoma. Case has been reviewed in consultation with Dr. Craven who concurs with the above diagnosis. IDC:AM
--- NOTE | 2018-08-24 08:18 | PCM.HP.BLA ---
History and Physical Date of Admission: 08/24/18 HISTORY AND PHYSICAL - BREAST COMPLAINT ? Celeste Esqueda 1955 ? ? REFERRING PHYSICIAN: ??Heaven Colvin APRN.* ? CHIEF COMPLAINT: ??Abnormal right breast imaging ? HPI: The patient is a 62 year old female with a complaint of an abnormal mammogram. ?The patient had a mammogram with ultrasound on December 18 and January 09, 2018 which demonstrated: ? IMPRESSION: SUSPICIOUS OF MALIGNANCY The multiple pleomorphic calcifications in the right breast superior lateral quadrant posterior depth are at a low suspicion for malignancy. ? A surgical consult is recommended. The asymmetry in the left breast middle depth medial region seen on the craniocaudal view only is probably benign. ?Follow-up mammogram and ultrasound in 6 months is recommended. ? IMPRESSION: PROBABLY BENIGN - SHORT TERM INTERVAL FOLLOW-UP RECOMMENDED The 4 mm irregular cyst in the left breast is probably benign. A follow-up left mammogram and an ultrasound in 6 months is recommended to demonstrate stability. ? ? 1 week after the patient was seen with plans for a stereotactic biopsy being arranged, she had a CVA. ?She's had a workup for this and it is of uncertain etiology or origin but she has been started on anticoagulation-Plavix and aspirin ? The patient had a mammogram on November 10, 2014 and November which demonstrated right breast upper outer microcalcifications. ?The patient denies a history of breast masses. ?She does ?perform a self breast exam routinely. ?She notes no skin changes. ?She denies nipple discharge. ?She notes no axillary masses. ?She notes no family history of breast problems. ?She notes no significant breast trauma or breast difficulties in the past. ? The patient has had 1 pregnancies. ??Her prior mammogram was 2013. ? ? Her maternal grandmother had breast cancer in the s. ?No first degree relatives with breast cancer The patient is being seen by me today at the request of Dr. Kelsie Boyd MD for my opinion and advice regarding right breast microcalcifications. . ?? ? I performed a right side stereotactic biopsy for her abnormal mammogram on December 17, 2014. ?The pathology returned as DCIS. ???The patient notes moderate bruising since the procedure. ? Pathology specifically - ductal carcinoma in situ solid,comedo and cribriform pattern, high nuclear grade, central, expansive comedo necrosis, calcifications ? ? ? We extensively discussed her diagnosis and at the last visit discussed her surgical options including breast conservation surgical procedures, mastectomy without reconstruction and mastectomy with reconstruction. ?The patient has elected to undergo a right side needle localization biopsy/lumpectomy. ? She had recent buttock implant of a hormone replacement agent - BioTE, performed in [place]. ?I spoke with the implanting mid-level who informs me that this is a Depo type injection which generally is resolved within 3 months. ? She was found to have bruising and a palpable sekou-biopsy swelling on her last office visit. ?This has since resolved. ? I performed a needle localization excisional biopsy of her right breast ?on January 19, 2015. ??The patient postoperatively noted. ?her appetite has been good. ?she denies fever, chills or abdominal pain. ?She did note some minimal incisional discomfort. ? Pathology returned as DCIS with initially recorded as close margin but no up staging to invasive cancer. ??The report was reviewed and reassessed by the pathologist and felt the close margin was 7 mm and this was below the skin ellipse. ? ? MICROSCOPIC DIAGNOSIS Right breast, lumpectomy: ?Ductal carcinoma in situ, high nuclear grade. ?See Cancer Summary below. ? DUCTAL CARCINOMA IN SITU SUMMARY: ??Specimen - partial breast. ??Procedure - excision with wire-guided localization. ??Lymph node sampling - no lymph nodes present. ??Specimen integrity - single intact specimen. ??Specimen size - 7 x 7 x 1.5 cm. ??Specimen laterality - right. ??Size (extent) of DCIS - 0.7 x 0.7 x 0.3 cm. ?Number of blocks with DCIS- 8 ?Number of blocks examined - 11 ??Histologic type - ductal carcinoma in situ. ??Architectural patterns - comedo, cribriform, solid. ??Nuclear grade - Grade III. ??Necrosis - present, central (expansive comedo necrosis). ??Margins - uninvolved by DCIS. ?Distance from closest superficial margin - 0.7 cm from overlying skin. ??Treatment effect - no known presurgical therapy. ??Lymph nodes - N/A. ??Additional Pathologic Findings: ?Fibrocystic involutional change. ?Focal atypical ductal hyperplasia. ?Biopsy cavity with associated reactive and reparative change. ? ??Ancillary Studies from previous specimen ([id number]/ [id number]): ?ER - variable 0-40% ?AL - 0% ?Her2 sara ([facility]) - 3+ ?Her2 by FISH - not performed. ??Microcalcifications - present in DCIS. ? ??Pathologic Staging: pTis(DCIS) Nx Mx ? The above summary is in compliance with [employer] (CAP) Cancer Protocols Checklist and [place] Joint Committee on Cancer (AJCC), Staging Manual, 7th Ed. ? AM:ch ?01/21/15 COMMENT This case is corrected on 03/30/15 to edit the ?distance from closest superficial margin from less than 1.0 mm to 0.7 cm from overlying skin.? ?Diagnosis remains unchanged. This case was discussed on 03/30/15 with Drs. Rasmussen and Hussain by Dr. Craven. ? Reference is made to the patient?s previous right breast stereotactic needle core biopsy from 12/18/14 ([id number]) in which ductal carcinoma in situ, high nuclear grade was identified. ? She notes some redness at the central breast area, but no pain or other difficulties. 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 ? She had completed her radiation treatment. ?She noted some fatigue and redness of the breast is otherwise doing well. ? She now underwent follow-up mammogram. ?This demonstrated: ? IMPRESSION: SUSPICIOUS OF MALIGNANCY The multiple calcifications are at a low suspicion for malignancy. ?A biopsy is recommended. Jose Alejandro rajan/freida:12/27/2016 09:13:52 Glazier Apprentice: Yulia VALENTINE(Giovani)([place]), [facility] letter sent: Abnormal Mammogram BI-RADS: 4a Suspicious abnormality - low suspicion for malignancy Director [facility]: Freida Transcribe Date/Time: Dec ?8:09A Dictated by: JOSE ALEJANDRO TILLMAN, DO This examination was interpreted and the report reviewed and electronically signed by: JOSE ALEJANDRO TILLMAN DO on Dec ?9:13AM ?EST * * *Final Report* * * DATE OF EXAM: Dec ?9:09AM ? WRW ??0626 ?- ?[facility] RT ?/ PROCEDURE REASON: call back right breast / abnormal mammogram ? * * * * Physician Interpretation * * * * RESULT: #[id number] - [facility] RT UNILATERAL RIGHT DIGITAL DIAGNOSTIC MAMMOGRAM WITH CAD: 12/27/2016 HISTORY: Callback Right / Abnormal Mammogram. RESULT: TECHNIQUE: ?The study was acquired using full field digital technology and interpreted from soft copy. Current study was also evaluated with a Computer Aided Detection (CAD). Comparison is made to exams dated: ?12/15/2016 mammogram, 11/12/2015 mammogram, 11/27/2014 mammogram - [facility], and 11/10/2014 mammogram - [facility]. The tissue of the right breast is heterogeneously dense. This may lower the sensitivity of mammography. There are multiple calcifications in the right axillary tail. ?These are increased in number. ?There are surgical clips and a post surgical scar associated with the calcifications. No other significant masses or calcifications are seen in the breast. ? . ?? ? I performed a right side Stereotactic guided core biopsy for her abnormal mammogram on January 09, 2017. ? ? The pathology returned as: ? ?Dystrophic microcalcifications, chronic scar changes histiocytes and chronic inflammation, negative for atypia or malignancy ? The patient notes minimal bruising since the procedure. ? He returns now for follow-up mammogram. ?Mammography was obtained on ?August 09, 2017. ?This demonstrated: ? IMPRESSION: BENIGN FINDING There is no mammographic evidence of malignancy. Return to annual mammogram screening schedule is recommended. Carlos A junior/freida:08/09/2017 08:57:56 Glazier Apprentice: Darlene VALENTINE (R)([place]), [facility] letter sent: Return to Annual Mammogram BI-RADS: 2 Benign finding. ? ? The patient has been doing a self breast exam and notes no specific abnormalities. ? She underwent follow-up mammogram on August 08, 2018. ?This demonstrated were felt to be increasingly grouped pleomorphic calcifications in the right breast and again recommended stereotactic biopsy. ?My impression is this is just medial to the previous biopsy site noted above but given the fact that seems to be increasing and her history of DCIS we are planning to perform biopsy. ? PAST?MEDICAL?HISTORY PAST MEDICAL HISTORY Diagnosis Date ? Acute ischemic right MCA stroke (HCC) 02/18/2018 ? MRI 01/23/2018 ? Class 1 obesity due to excess calories without serious comorbidity with body mass index (BMI) of 31.0 to 31.9 in adult 04/28/2017 ? DCIS (ductal carcinoma in situ) of breast 12/24/2014 ? Diabetes (HCC) 01/2012 ? Endometriosis ? ? no problems unless stressed; evening primrose has controlled symptoms ? Fibroids ? ? HTN (hypertension) 01/2012 ? Lump or mass in breast ? ? X2 ? Mitral regurgitation ? ? minimal to mild--2006 echo ? S/P ABIODUN-BSO ? ? Snoring ? ? ? PAST?SURGICAL?HISTORY PAST SURGICAL HISTORY Procedure Laterality Date ? APPENDECTOMY ? 07/01/94 ? BREAST BIOPSY ? 01/09/2017 ? [facility] - post surgical changes ? BREAST BIOPSY W/STEREOTACTIC GUIDANCE Right 12/17/14 ? COLONOSCOP W/ OR W/O [facility] SPEC ? 10/16/15 ? normal -5 year follow up family history ? COLONOSCOPY ? ~2010 ? Dr. Marsh ? MASTECTOMY, PARTIAL Right 01/19/15 ? DCIS ? PAST SURGICAL HISTORY OF Left 2011 ? Pins in foot ? REMOVAL OF OVARY(S) ? 07/01/94 ? LEFT ? STEREOTACTIC CORE BIOPSY ? 04/25/07 ? LEFT BREASTX2, A-CENTRAL, B-LATERAL,BIRADS 4 ? TOTAL ABDOM HYSTERECTOMY ? 02/06/14 ? BSO ? ? CURRENT?MEDICATIONS Current Outpatient Medications Medication Sig Dispense Refill ? Lactobac no.41/Bifidobact no.7 (PROBIOTIC-10 ORAL) Take by mouth. ? ? ? lisinopril (ZESTRIL, PRINIVIL) 5 mg tablet Take 1 tablet by mouth once daily. 90 tablet 3 ? tamoxifen (NOLVADEX) 20 mg tablet Take 1 tablet (20 mg) by mouth once daily. 90 tablet 3 ? metFORMIN (GLUCOPHAGE) 500 mg tablet Take 2 tablets by mouth twice daily with meals. (will let me know if/when wants 1000 mg pills to take twice daily) 360 tablet 3 ? atorvastatin (LIPITOR) 80 mg tablet Take 1 tablet by mouth once daily. 90 tablet 3 ? aspirin, enteric coated (ASPIRIN, ENTERIC COATED) 81 mg EC tablet Take 81 mg by mouth once daily. ? ? ? cholecalciferol (VITAMIN D-3) 5,000 unit tab Take 1 tablet by mouth once daily. ? ? ? COMPOUNDED PRESCRIPTION Blood Sugar Sailing Master 2 per day ? ? ? blood sugar diagnostic (FREESTYLE LITE STRIPS) test strip Test blood sugar(s) 2 times daily and as directed. ?Dx: ?Type 2 DM - Uncontrolled Insulin: No 200 Strip 3 ? omega-3 fatty acids 1,000 mg cap Take 1 capsule by mouth once daily. ? ? ? Ascorbic Acid (VITAMIN C) 1,000 mg tablet Take 1 tablet by mouth once daily. ? ? ? blood sugar diagnostic (BLOOD GLUCOSE TEST) test strip Test blood sugar(s) 2 times daily. ?Dx: Type 2 DM - Uncontrolled ?Insulin: No 50 Strip 11 ? Lancets lancets Test blood sugar(s) 2 times daily. ?Dx: Type 2 DM - Uncontrolled ?Insulin: No 100 Each 11 ? clopidogrel (PLAVIX) 75 mg tablet Take 1 tablet by mouth once daily. 30 tablet 1 ? CALCIUM CARBONATE/VITAMIN D3 (CALCIUM 600 + D,3, ORAL) Take ?by mouth. ? ? ? No current facility-administered medications for this visit.? ? ALLERGIES:?Erythromycin ? PERSONAL HISTORY:? SOCIAL?HISTORY Social History ??Socioeconomic History ?Marital status: ?Spouse name: Not on file ?Number of children: Not on file ?Years of education: Not on file ?Highest education level: Not on file ??Social Needs ?Financial resource strain: Not on file ?Food insecurity - worry: Not on file ?Food insecurity - inability: Not on file ?Transportation needs - medical: Not on file ?Transportation needs - non-medical: Not on file ??Occupational History ?Not on file ??Tobacco Use ?Smoking status: Never Smoker ?Smokeless tobacco: Never Used ??Substance and Sexual Activity ?Alcohol use: No ?Comment: rarely ?Drug use: No ?Sexual activity: Not on file ??Other Topics ?Concerns: ?Not on file ??Social History Narrative ?Not on file ? FAMILY HISTORY:? FAMILY?HISTORY FAMILY HISTORY Problem Relation Age of Onset ? Prostate Cancer Father ? ? Colon Cancer Father ? ? Diabetes Brother ?two brothers with DM ? Diabetes Maternal Grandmother ? ? Breast Cancer Maternal Grandmother ? ? Multiple Sclerosis Mother ? ? Multiple Sclerosis Maternal Aunt ? ? Diabetes Paternal Uncle ? ? Diabetes Maternal Aunt ? ? Diabetes Maternal Grandfather ? ? Coronary Artery Disease Paternal Grandfather ? ? REVIEW OF SYMPTOMS: ??The review of systems data was entered by the nurse and reviewed by me ? There are no exam notes on file for this visit. ? PHYSICAL EXAMINATION: ? General: ?The patient is 62 year old female, well nourished, well hydrated in no acute distress. ?The patient is oriented to time, place, and person. ? VITALS:?Blood pressure 118/62, pulse 111, temperature 37.1 ?C (98.7 ?F), temperature source Temporal Artery, weight 83.2 kg (183 lb 6.4 oz), last menstrual period 04/29/2013, SpO2 98 %.?Body mass index is 31.98 kg/m?.? ? HEENT: ?Normal cephalic, ataumatic, pupils are equally round, sclera are anicteric, mucous membranes are moist, oropharynx is clear. ?Neck has no masses, asymmetry or lymphadenopathy. ?Thyroid is unremarkable. ? Respiratory: ?Clear to auscultation and percussion. ?Normal respiratory excursion and pattern. ? Cardiac: ?Examination is regular rate and rhythm. ? Breast: ?Visual inspection reveals a retraction at the site of the previous lumpectomy site in the right upper-outer quadrant but otherwise no additional retractions, nipple inversion, or skin changes. ?Palpation of the right breast reveals no dominant or suspicious masses, but multiple benign-feeling nodules. ?Palpation of the left breast reveals no dominant or suspicious masses, but multiple benign-feeling nodules. ?Axillary exam demonstrates no suspicious masses in either the left or right axilla. ?There is no nipple discharge expressed from either the left or right breast. ? LABORATORY VALUES: As Noted ? RADIOLOGIC STUDIES: ?As Noted ? Assessment ? IMPRESSION: Increasing microcalcifications in the last 6 months right upper quadrant rest, history of DCIS - recent CVA ? PLAN: ?I was planning to perform a stereotactic biopsy of the right breast. ? ? My impression is this is just medial to the previous biopsy site noted above but given the fact that seems to be increasing and her history of DCIS we are planning to perform biopsy. ?Given the fact that the patient is CVA earlier this year we will maintain her on her low-dose aspirin. ??The planned surgical procedure was discussed extensively with the patient. The risks, benefits and anticipated outcomes of the procedure, the risks and benefits of the alternatives to the procedure, and the roles and tasks of the personnel to be involved, were discussed with the patient. ?My staff has also explained the procedure in understandable terms and the patient was given the option to take printed material concerning the planned procedure. ?The patient had the opportunity to ask questions concerning the planned procedure. ?The patient freely consents to the planned procedure. ? ? Diagnoses:?(R92.0) Breast microcalcifications ?(primary encounter diagnosis) ? My findings have been communicated to ?Heaven Colvin via shared medical record. ?This note will be forwarded to Kelsie Boyd MD and Dr. Pelaez. ? Return to Clinic: The patient is instructed to follow-up with me?after stereotactic biopsy is performed. ? Vick Rasmussen MD
--- NOTE | 2018-08-24 08:20 | BRBX_PTH ---
PATIENT: MARCELLE ALEMAN LOC: [facility] U#:[id number] AGE/SX: 69/F ROOM: RE08/24/[address]: Dr. Vick Rasmussen MD : 1955 BED: DIS: SPEC #: [id number] RECD: 08/24/18 09:33 STATUS: VERNON MALDONADO #: [id number] LUL: 08/24/18 08:[address]: Vick Rasmussen DEPT: SURGICAL PATHOLOGY RECD BY: Altaf Last ENTERED: 08/24/18 15:03 SP TYPE: BREAST BX OTHR DR: Dr. Kelsie Boyd MD Tissues: Right breast, NOS Procedures: Surgery Specimen Level IV HEADER OPERATION: Right stereotactic breast biopsy PRE-OP DIAGNOSIS: Right upper lateral breast microcalcifications TISSUE SUBMITTED: Right breast core tissue ISCHEMIC TIME: 2 minutes FIXATION TIME: 59 hours MICROSCOPIC DIAGNOSIS Right breast, upper lateral breast microcalcifications, stereotactic core biopsy: Ductal carcinoma in situ with the following characteristics: Pattern - solid, comedo and cribriform Nuclear Grade - high Necrosis - present, central (expansive comedo necrosis). Calcifications - present Focal area of microinvasive carcinoma is also noted. See comment. SJ:clifford 08/27/18 COMMENT Immunohistochemistry ([id number]) supports the above diagnosis. Please refer to immunohistochemistry report ([id number]) for hormone receptor studies. Ductal carcinoma in situ and microinvasive carcinoma show similar results for hormone receptors. Hormone receptor studies can be performed on resected specimen if larger focus of invasive carcinoma is noted. Correlation with clinical, radiologic findings and appropriate follow up are necessary. Please make reference to previous specimen ([id number]) right breast, stereotactic core biopsy and ([id number]) right breast, lumpectomy with diagnosis of ductal carcinoma in situ and ([id number]) right breast, upper outer microcalcifications, stereotactic core biopsy with diagnosis of fatty benign breast tissue with focal dense fibrosis, chronic inflammation and histiocytic reaction and focal dystrophic calcifications. Case has been reviewed in consultation with Dr. Craven who concurs with the above diagnosis. IDC:AM MICROSCOPIC DESCRIPTION Slides are reviewed. GROSS DESCRIPTION Received in fixative is one container labeled with the patient's name and designated right breast. The specimen consists of multiple irregular fragments of yellow-mullins soft tissue that in aggregate measure 2.5 x 2.5 x 0.2 cm. The specimen is totally submitted in one cassette. / AM:clifford 08/24/18 TC:0 CPT: 49894 ADDENDUM ADDENDUM ADDENDUM ADDENDUM ADDENDUM ADDENDUM ADDENDUM ADDENDUM ADDENDUM ADDENDUM ADDENDUM ADDENDUM ADDENDUM 10/16/2018 14:11 ADDENDUM 10/16/2018 14:11 ADDENDUM 10/16/2018 14:11 ADDENDUM 10/16/2018 14:11 ADDENDUM 10/16/2018 14:11 This addendum is added to incorporate an outside pathology consultation report. The case was examined at [facility] (#[id number]) and the following diagnosis was rendered. Right breast, upper lateral breast calcification stereotactic core biopsy: -Single focus of microinvasive carcinoma measuring less than 1mm Ductal carcinoma in situ high-grade cribriform and solid type with associated microcalcifications -See comment Please see complete above mentioned consultation report in EMR
--- NOTE | 2018-08-24 13:08 | PCM.OPRPT ---
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 The right breast was positioned in the CC approach on the [place] stereotactic table. Mammographic image demonstrated the area of abnormality to be located in the center of the radiograph. Stereotactic images were then obtained which demonstrated good positioning of the abnormality for biopsy with good stroke avery parameters. The breast was cleaned with Betadine area did one percent lidocaine was used to anesthetize the skin and a small stab incision made. An 8-gauge mammotome needle was placed into the pre-fire position. Stereotactic images demonstrated good positioning around the planned biopsy site. Local anesthetic injected deeply in the breast. The needle was deployed. Post deployment images demonstrated good positioning of the planned biopsy site. Multiple vacuum-assisted samples were obtained and [id number] fashion. Specimen radiograph demonstrated micro-calcifications in the sample. A gel marker clip was deployed. Post biopsy images demonstrated good position of the clip relative the biopsy cavity. The breast was removed from compression. Steri-Strips and a dressing applied. Post procedure mammogram images were obtained.
== END ==
PROVIDERS: Family Provider Internal Medicine; PCP Internal Medicine; Referring Provider Surgery; Visit Provider Surgery
DX: D05.11 Intraductal carcinoma in situ of right breast (principal); R92.1 Mammographic calcification found on diagnostic imaging of breast; N64.1 Fat necrosis of breast; Z80.3 Family history of malignant neoplasm of breast; E11.9 Type 2 diabetes mellitus without complications; I10 Essential (primary) hypertension
CPT/HCPCS: 19081; 88305; 88341; 88342; J7050; A4648